=== PATIENT | male | born 1990 | race Hispanic/Latino ===

== ENCOUNTER 2023-06-22 11:25 | Emergency (ER) | payer SELFPAY ==
[~2023-06-22] VITALS: Ht 170.2 cm; Wt 72.5 kg
[2023-06-22] MEDS ORDERED: ONDANSETRON HCl 4 MG/2 ML SDV IV ONE (11:30)
[2023-06-22] MEDS ORDERED: LACTATED RINGER'S 1,000 ML IV ONE ×2 (11:30→11:40)
[2023-06-22 11:32] VITALS: BP 145/84
[2023-06-22 11:49] LABS: URINE BILIRUBIN - DIPSTICK Negative (NEGATIVE); URINE BLOOD DIPSTICK Negative (NEGATIVE); URINE COLOR Yellow; URINE GLUCOSE - DIPSTICK >=1000 mg/dL (NEGATIVE); URINE KETONE Negative (NEGATIVE); URINE LEUK ESTERASE Negative (NEGATIVE); URINE NITRITE - DIPSTICK Negative (Negative); URINE PROTEIN - DIPSTICK Negative (NEG-TRACE); URINE UROBILINOGEN - DIPSTICK 0.2 E.U./dL (0.2)
[2023-06-22 12:00] LABS: BASO% 0.2 % (0-3); EOS% 1.1 % (0-8); HEMATOCRIT 43.4 % (39.0-50.0); HEMOGLOBIN 15.4 g/dl (14.0-18.0); IMMATURE GRANULOCYTES 0.1 % (0.0-5.0); LYMPH% 26.2 % (15-41); MEAN CELL VOLUME 86.8 fL CALC (80.0-100.0); MEAN CORPUSCULAR HGB 30.8 pG CALC (26.0-32.0); MEAN CORPUSCULAR HGB CONC 35.5 g/dL CAL (32.0-36.0); MONO% 4.9 % (2-13); NEUT# 5.42 thou/uL (1.82-7.42); NEUT% 67.5 % (42-76); RED CELL DISTRI WIDTH 11.1 % (11.5-15.5)
[2023-06-22 12:12] LABS: ALBUMIN 4.4 g/dL (3.2-5.0); ALKALINE PHOSPHATASE 196 u/l (38-126); ANION GAP 16 (6-22 (CALC)); BILIRUBIN, TOTAL 0.7 mg/dL (0.2-1.3); BUN 11 mg/dL (9-20); BUN/CREATININE RATIO 14 (12-20 (CALC)); CARBON DIOXIDE 22 mmol/l (22-30); CHLORIDE 98 mmol/l (95-108); CPK 95 u/l (55-170); CREATININE 0.8 mg/dL (0.7-1.3); GFR FOR AFR.AMER. > 60 ML/MIN (>=60 (CALC)); GFR OTHER RACES > 60 ML/MIN (>=60 (CALC)); POTASSIUM 3.8 mmol/l (3.5-5.1); SGOT/AST 28 u/l (17-59); SODIUM 133 mmol/l (137-146); TOTAL PROTEIN 7.2 g/dL (6.3-8.2)
[2023-06-22] MEDS ORDERED: INSULIN REGULAR (HUMAN) 100 UNIT/ML INJ IV ONE ×2 (13:00→14:40)
[2023-06-22] MEDS ORDERED: POTASSIUM CHLORIDE 20 MEQ/TAB PO ONE (13:00)
[2023-06-22] MEDS ORDERED: METFORMIN HCL500 M1 PO (14:04)
[2023-06-22] MEDS ORDERED: GLIPIZIDE5 M2 PO (14:04)
[2023-06-22] MEDS ORDERED: SODIUM CHLORIDE 0.9% 1,000 ML IV ONE (14:25)
[2023-06-22 16:08] VITALS: BP 145/84
== END 2023-06-22 16:43 | disposition home or self-care (01) | DRG 639 ==
LOC: ED 11:25
PROVIDERS: Nurse Practitioner
DX: E11.9 Type 2 diabetes mellitus without complications (principal)